=== PATIENT | female | born 1980 | race Two or more races ===

== ENCOUNTER 2019-12-01 14:48 | Emergency (ER) | payer OTHER, MEDICAID ==
[~2019-12-01] VITALS: Ht 152.4 cm; Wt 54.4 kg
[2019-12-01] MEDS ORDERED: cloNIDine HCL 0.1 MG TAB ONE (15:10)
[2019-12-01] MEDS ORDERED: cloNIDine HCL 0.1 MG TAB PO ONE (15:15)
[2019-12-01 17:06] VITALS: BP 180/131
[2019-12-01] MEDS ORDERED: cefTRIAXone SOD 1,000 MG VL IM ONE (17:30)
== END 2019-12-01 17:38 | disposition home or self-care (01) ==
LOC: ER 14:48 → EDBD 14:48 → ER 17:38
DX: S60.562A Insect bite (nonvenomous) of left hand, initial encounter (principal); S60.561A Insect bite (nonvenomous) of right hand, initial encounter; S10.96XA Insect bite of unspecified part of neck, initial encounter; S20.362A Insect bite (nonvenomous) of left front wall of thorax, initial encounter; S20.361A Insect bite (nonvenomous) of right front wall of thorax, initial encounter; I10 Essential (primary) hypertension; W57.XXXA Bitten or stung by nonvenomous insect and other nonvenomous arthropods, initial encounter; Y93.9 Activity, unspecified; Y92.89 Other specified places as the place of occurrence of the external cause; Y99.8 Other external cause status
CPT/HCPCS: 96372; 99283; J0696

== ENCOUNTER 2020-03-15 04:29 | Emergency (ER) | payer OTHER, MEDICAID ==
[~2020-03-15] VITALS: Ht 152.4 cm; Wt 59.0 kg
[2020-03-15 05:23] LABS: Basophils # (auto) 0.1 10 ^3/uL (0-0.2); Basophils % (auto) 0.9 % (0.0-2.0); Eosinophils # (auto) 0 10 ^3/uL (0-0.8); Eosinophils % (auto) 0.5 % (0.0-7.0); Hematocrit 40.1 % (36.0-46.0); Hemoglobin 13.3 g/dL (12.2-16.2); Lymphocytes # (auto) 1.9 10 ^3/uL (0.4-5.4); Lymphocytes % (auto) 26.6 % (10.0-50.0); Mean Corpuscular Hemoglobin 28.4 pg (28.0-32.0); Mean Corpuscular Hgb Conc. 33.2 g/dL (32.0-36.0); Mean Corpuscular Volume 85.3 fL (80.0-100.0); Monocytes % (auto) 14.3 % (0.0-12.0); Neutrophils # (auto) 4.1 10 ^3/uL (1.6-8.6); Neutrophils % (auto) 57.7 % (37.0-80.0); Nucleated Red Blood Cells % 0.1 %; Platelet Count (auto) 363 10^3/uL (140-450); Red Cell Distribution Width 14.6 % (11.8-14.3); White Blood Cell 7.2 10^3/uL (4.4-10.8)
[2020-03-15 05:43] LABS: Calcium 9.2 mg/dL (8.5-10.1); Magnesium 2.3 mg/dL (1.6-2.6)
[2020-03-15 05:45] LABS: Salicylate < 1.7 mg/dL (2.8-20.0)
[2020-03-15 05:46] LABS: Urine Bacteria NONE SEEN /hpf (None Seen); Urine Blood Negative /uL (Negative); Urine Mucus FEW (None Seen); Urine Specific Gravity 1.023 (1.001-1.035); Urine WBC 5 /hpf (0 - 5)
[2020-03-15 05:46] LABS: BUN/Creatinine Ratio 22.7; Bilirubin, Total 0.5 mg/dL (0.2-1.0); Total Protein 7.7 g/dL (6.4-8.2)
[2020-03-15 05:52] LABS: Potassium 2.9 mmol/L (3.5-5.1)
[2020-03-15 05:53] LABS: Acetaminophen < 2.0 ug/mL (10-30)
[2020-03-15 05:55] LABS: Amphetamine Screen, Urine POSITIVE (NEGATIVE); Barbiturate Scree,Urine NEGATIVE (NEGATIVE); Benzodiazephine Screen, Urine NEGATIVE (NEGATIVE); Cannabinoid Screen, Urine NEGATIVE (NEGATIVE); Cocaine Screen, Urine NEGATIVE (NEGATIVE); Opiate Scree,Urine NEGATIVE (NEGATIVE); Phencyclidine Screen, Urine NEGATIVE (NEGATIVE)
[2020-03-15] MEDS ORDERED: POTASSIUM EFFERVESENT TAB 25 MEQ PO ONE (07:15)
[2020-03-15] MEDS ORDERED: LORazepam 2MG/ML-1ML VIAL IV ONE ×2 (09:00→11:30)
[2020-03-15] MEDS ORDERED: OLANZapine 5 MG TAB PO ONE (09:45)
[2020-03-15] MEDS ORDERED: diphenhdrAMINE HCL 50 MG/1 ML VL IM ONE (12:15)
[2020-03-15] MEDS ORDERED: HALOPERIDOL LACTATE 5 MG/ML INJ VIAL IM ONE (12:15)
[2020-03-16 14:38] VITALS: BP 136/97
== END 2020-03-16 13:47 | disposition short-term general hospital (02) ==
LOC: ER 04:29
DX: O99.341 Other mental disorders complicating pregnancy, first trimester (principal); O99.281 Endocrine, nutritional and metabolic diseases complicating pregnancy, first trimester; O13.1 Gestational [pregnancy-induced] hypertension without significant proteinuria, first trimester; E87.6 Hypokalemia; O21.9 Vomiting of pregnancy, unspecified; F41.9 Anxiety disorder, unspecified; F31.9 Bipolar disorder, unspecified; J45.909 Unspecified asthma, uncomplicated; Z3A.08 8 weeks gestation of pregnancy; Z20.828 Contact with and (suspected) exposure to other viral communicable diseases
CPT/HCPCS: 36415; 80053; 80307; 80320; 80329; 81001; 83735; 84702; 85025; 87426; 93005; 96372; 96374; 96376; 99285; C9803; J1200; J1630; J2060; U0003

== ENCOUNTER 2020-04-02 16:45 | Emergency (ER) | payer OTHER, MEDICAID ==
[~2020-04-02] VITALS: Ht 165.1 cm; Wt 68.0 kg
[2020-04-02 19:25] LABS: Basophils # (auto) 0.1 10 ^3/uL (0-0.2); Basophils % (auto) 0.5 % (0.0-2.0); Eosinophils # (auto) 0 10 ^3/uL (0-0.8); Hematocrit 45.8 % (36.0-46.0); Lymphocytes # (auto) 1.7 10 ^3/uL (0.4-5.4); Lymphocytes % (auto) 10.1 % (10.0-50.0); Mean Corpuscular Hemoglobin 27.8 pg (28.0-32.0); Mean Corpuscular Hgb Conc. 32.8 g/dL (32.0-36.0); Mean Corpuscular Volume 84.8 fL (80.0-100.0); Monocytes # (auto) 1.6 10 ^3/uL (0-1.3); Monocytes % (auto) 9.3 % (0.0-12.0); Neutrophils # (auto) 13.5 10 ^3/uL (1.6-8.6); Neutrophils % (auto) 80.1 % (37.0-80.0); Platelet Count (auto) 391 10^3/uL (140-450); Red Cell Distribution Width 14.2 % (11.8-14.3); White Blood Cell 16.8 10^3/uL (4.4-10.8)
[2020-04-02 19:45] LABS: Albumin 4.5 g/dL (3.4-5.0); BUN/Creatinine Ratio 14.4; Calcium 9.3 mg/dL (8.5-10.1)
[2020-04-02 19:47] LABS: Bilirubin, Total 0.8 mg/dL (0.2-1.0); Total Protein 8.9 g/dL (6.4-8.2)
[2020-04-02 19:51] LABS: Potassium 2.7 mmol/L (3.5-5.1)
[2020-04-02] MEDS ORDERED: POTASSIUM EFFERVESENT TAB 25 MEQ PO ONE ×2 (20:00)
[2020-04-03 00:26] LABS: Albumin 4.2 g/dL (3.4-5.0); BUN/Creatinine Ratio 20.8; Calcium 9.2 mg/dL (8.5-10.1)
[2020-04-03 00:29] LABS: Bilirubin, Total 0.9 mg/dL (0.2-1.0); Total Protein 8.8 g/dL (6.4-8.2)
[2020-04-03 00:34] LABS: Potassium 2.9 mmol/L (3.5-5.1)
[2020-04-03] MEDS ORDERED: POTASSIUM EFFERVESENT TAB 25 MEQ PO ONE ×2 (00:45→02:00)
[2020-04-03] MEDS ORDERED: ACETAMINOPHEN 325 MG TAB PO ONE (01:15)
[2020-04-03] MEDS ORDERED: SODIUM CHLORIDE 0.9% 1,000 ML IV ONE ×2 (02:00→03:45)
[2020-04-03] MEDS ORDERED: LORazepam 2MG/ML-1ML VIAL IV ONE (02:00)
[2020-04-03] MEDS: POTASSIUM CHL 20MEQ/100ML 100 ML IV SCH ×2 (04:26→06:47)
[2020-04-03 06:00] VITALS: BP 157/106
[2020-04-03 06:39] LABS: Urine Bacteria MANY /hpf (None Seen); Urine Blood Negative /uL (Negative); Urine Mucus FEW (None Seen); Urine Specific Gravity 1.025 (1.001-1.035); Urine WBC 9 /hpf (0 - 5)
[2020-04-03 06:58] LABS: Alcohol, Urine < 3.0 mg/dL (0-10); Amphetamine Screen, Urine POSITIVE (NEGATIVE); Barbiturate Scree,Urine NEGATIVE (NEGATIVE); Benzodiazephine Screen, Urine NEGATIVE (NEGATIVE); Cannabinoid Screen, Urine NEGATIVE (NEGATIVE); Cocaine Screen, Urine NEGATIVE (NEGATIVE); Opiate Scree,Urine NEGATIVE (NEGATIVE); Phencyclidine Screen, Urine NEGATIVE (NEGATIVE)
[2020-04-03] MEDS ORDERED: GABA100C9 PO (18:44)
== END 2020-04-03 07:17 | disposition home or self-care (01) ==
LOC: EDBD 16:45 → ER 16:45
DX: R55 Syncope and collapse (principal); F15.10 Other stimulant abuse, uncomplicated; E87.6 Hypokalemia
CPT/HCPCS: 36415; 70450; 80053; 80307; 81001; 85025; 93005; 96361; 96365; 96375; 99285; J2060; J3480

== ENCOUNTER 2020-04-03 08:08 | Inpatient (IN) | payer OTHER, MEDICAID ==
[~2020-04-03] VITALS: Ht 154.9 cm; Wt 81.0 kg
[2020-04-03 09:40] LABS: Basophils # (auto) 0.1 10 ^3/uL (0-0.2); Basophils % (auto) 0.6 % (0.0-2.0); Eosinophils # (auto) 0 10 ^3/uL (0-0.8); Eosinophils % (auto) 0.1 % (0.0-7.0); Hematocrit 38.8 % (36.0-46.0); Hemoglobin 12.9 g/dL (12.2-16.2); Lymphocytes # (auto) 1.7 10 ^3/uL (0.4-5.4); Lymphocytes % (auto) 10.6 % (10.0-50.0); Mean Corpuscular Hemoglobin 28.1 pg (28.0-32.0); Mean Corpuscular Hgb Conc. 33.3 g/dL (32.0-36.0); Mean Corpuscular Volume 84.5 fL (80.0-100.0); Monocytes # (auto) 1.1 10 ^3/uL (0-1.3); Neutrophils # (auto) 12.9 10 ^3/uL (1.6-8.6); Neutrophils % (auto) 81.7 % (37.0-80.0); Platelet Count (auto) 283 10^3/uL (140-450); Red Blood Cells 4.59 10^6/uL (4.0-5.20); Red Cell Distribution Width 14.3 % (11.8-14.3); White Blood Cell 15.8 10^3/uL (4.4-10.8)
[2020-04-03 09:56] LABS: Albumin 3.6 g/dL (3.4-5.0); Anion Gap 7 (5-15); BUN/Creatinine Ratio 26.4; Blood Urea Nitrogen 19 mg/dL (7-18); Calcium 8.5 mg/dL (8.5-10.1); Carbon Dioxide 24 mmol/L (21-32); Chloride 108 mmol/L (98-107); GFR African American 116 mL/min; GFR Non-African American 96 mL/min; Glucose 168 mg/dL (74-106); Magnesium 2.1 mg/dL (1.6-2.6); Potassium 3.3 mmol/L (3.5-5.1); Sodium 139 mmol/L (136-145)
[2020-04-03 10:04] LABS: Alanine Aminotransferase 18 U/L (13-56); Alkaline Phosphatase 102 U/L (45-117); Aspartate Aminotransferase 22 U/L (15-37); Total Protein 7.5 g/dL (6.4-8.2)
[2020-04-03] MEDS ORDERED: POTASSIUM EFFERVESENT TAB 25 MEQ PO ONE (10:15)
[2020-04-03] MEDS ORDERED: cefTRIAXone 1GM/50ML D5W 50 ML IV ONE (13:30)
[2020-04-03] MEDS ORDERED: SODIUM CHLORIDE 0.9% 1,000 ML IV ONE ×2 (13:30)
[2020-04-03] MEDS ORDERED: LORazepam 2MG/ML-1ML VIAL IV ONE (13:30)
[2020-04-03 14:45] LABS: Urine Bacteria MANY /hpf (None Seen); Urine Blood Negative /uL (Negative); Urine Mucus FEW (None Seen); Urine Specific Gravity 1.024 (1.001-1.035); Urine WBC 14 /hpf (0 - 5)
[2020-04-03] MEDS ORDERED: ACETAMINOPHEN 500 MG TAB PO PRN (15:00)
[2020-04-03] MEDS ORDERED: PROMETHAZINE HCL 25 MG/ML 1ML IV PRN (15:00)
[2020-04-03] MEDS ORDERED: NITROGLYCERIN 0.4 MG SL TAB SL PRN (15:00)
[2020-04-03] MEDS ORDERED: MORPHINE SULF INJ 2 MG/ML SYRINGE 1ML IV PRN ×2 (15:00)
[2020-04-03] MEDS ORDERED: levoFLOXacin 500MG 100 ML IV ONE (15:00)
[2020-04-03] MEDS ORDERED: DEXTROSE (50%) 50ML SYRG IV PRN (15:00)
[2020-04-03 15:03] LABS: Amphetamine Screen, Urine POSITIVE (NEGATIVE); Barbiturate Scree,Urine NEGATIVE (NEGATIVE); Benzodiazephine Screen, Urine NEGATIVE (NEGATIVE); Cannabinoid Screen, Urine NEGATIVE (NEGATIVE); Cocaine Screen, Urine NEGATIVE (NEGATIVE); Phencyclidine Screen, Urine NEGATIVE (NEGATIVE)
[2020-04-03 15:11] LABS: Opiate Scree,Urine NEGATIVE (NEGATIVE)
[2020-04-03] MEDS: SOD CHL 0.9%/ KCL 40MEQ 1,000 ML IV SCH (15:11)
--- NOTE | 2020-04-03 17:47 | NUR ---
Received report from ED Report received from ER nurse Selene. Transporting up to the unit room 218 B. Patient is anxious and difficult to understand. Speech is garbled and she is anxious. She is cooperative, thoughts are broken and scattered and she is unable to explain how she ended up in the hospital. Her skin is scabbed and there are bruises on both arms and knees. Her scalp also appears to have scabbing. Vitals BP 162/101, RR 20, HR 115, temp 99.2 and O2 95% on room air. Will continue to monitor. Spoke with the mother Laura.
[2020-04-03] MEDS: ACCU-CHEK COMFORT CURVE STRIP VI SCH ×2 (18:41→23:57)
[2020-04-03] MEDS: InsuLIN REG 1unit/0.01ml Soln (100units/ml) SC SCH (18:42)
[2020-04-03] MEDS ORDERED: GABA100C9 PO (18:44)
--- NOTE | 2020-04-03 19:40 | NUR ---
OPENING SHIFT NOTE Pt is resting in bed . Awake and alert but anxious. POC discussed with pt and verbalizes understanding. Pt is with garbled/ slurred speech and not wearing her upper and lower dentures at this time. Pt noted to have an unsteady gait and encouraged to call for stand by assist to the BR and pt verbalizes understanding. Bed alarm is set for pt safety. Bed is low, wheels are locked, and call light is with in reach.
[2020-04-03 22:00] VITALS: BP 160/75
--- NOTE | 2020-04-03 22:30 | NUR ---
PT IS INCONT OF URINE AND LINEN AND GOWN CHANGED AT THIS TIME.
[2020-04-03] MEDS: metroNIDAZOLE 500MG/100ML 100 ML IV SCH (23:21)
[2020-04-03] MEDS: FAMOTIDINE 20 MG TAB PO SCH (23:21)
[2020-04-03] MEDS: traMADol HCL 50 MG TAB PO PRN (23:58)
[2020-04-04] VITALS (7 sets, daily range): BP systolic 129–152; BP diastolic 75–103
--- NOTE | 2020-04-04 02:00 | NUR ---
PT INCONT OF URINE AND PADS AND GOWN CHANGED AT THIS TIME.
[2020-04-04] MEDS: SOD CHL 0.9%/ KCL 40MEQ 1,000 ML IV SCH (06:38)
[2020-04-04] MEDS: ACCU-CHEK COMFORT CURVE STRIP VI SCH ×4 (06:39→22:00)
[2020-04-04] MEDS: InsuLIN REG 1unit/0.01ml Soln (100units/ml) SC SCH ×5 (06:39→22:00)
[2020-04-04] MEDS: metroNIDAZOLE 500MG/100ML 100 ML IV SCH ×3 (06:39→22:00)
[2020-04-04 07:00] LABS: Basophils # (auto) 0.1 10 ^3/uL (0-0.2); Basophils % (auto) 0.5 % (0.0-2.0); Eosinophils # (auto) 0.1 10 ^3/uL (0-0.8); Eosinophils % (auto) 0.4 % (0.0-7.0); Hematocrit 38.5 % (36.0-46.0); Lymphocytes # (auto) 2.2 10 ^3/uL (0.4-5.4); Lymphocytes % (auto) 15.1 % (10.0-50.0); Mean Corpuscular Hgb Conc. 33.8 g/dL (32.0-36.0); Mean Corpuscular Volume 85.6 fL (80.0-100.0); Monocytes % (auto) 7.2 % (0.0-12.0); Neutrophils # (auto) 10.9 10 ^3/uL (1.6-8.6); Neutrophils % (auto) 76.8 % (37.0-80.0); Nucleated Red Blood Cells % 0.1 %; Platelet Count (auto) 237 10^3/uL (140-450); Red Cell Distribution Width 14.3 % (11.8-14.3); White Blood Cell 14.2 10^3/uL (4.4-10.8)
[2020-04-04 07:23] LABS: Albumin 3.5 g/dL (3.4-5.0); Calcium 8.5 mg/dL (8.5-10.1)
[2020-04-04 07:28] LABS: BUN/Creatinine Ratio 14.5; Total Protein 7.5 g/dL (6.4-8.2)
--- NOTE | 2020-04-04 07:30 | NUR ---
Opening Shift Note Assumed care of patient, awake and alert. No S/S of distress/SOB. Patient complaining of a headache /. Patient is restless and communication is inconsistent with the situation. Her thoughts are broken and her speech is fast and incoherent at times. Instructed on POC and to call for assist PRN. Patient verbalized understanding. Bed is in lowest position and the call light is within reach of the patient. Sitter requested but non available at this time. Will continue to monitor for changes Q1hr and PRN.
[2020-04-04 07:47] LABS: Potassium 2.8 mmol/L (3.5-5.1)
[2020-04-04] MEDS: traMADol HCL 50 MG TAB PO PRN ×2 (07:55→21:08)
--- NOTE | 2020-04-04 08:05 | NUR ---
Critical lab value Lab called with a critical lab value potassium 3.3. 0.9% NS with 40 mEq in 1L was ordered.
--- NOTE | 2020-04-04 08:59 | NUR ---
SS recommendation SS called and recommended to request a transfer to [facility] from the attending doctor. Will update hospitalist when rounding.
--- NOTE | 2020-04-04 09:19 | NUR ---
Spoke with family Patient's mother Laura called. Password confirmed. Family was updated her status.
[2020-04-04] MEDS ORDERED: levoFLOXacin 500MG 100 ML IV SCH (10:00)
[2020-04-04] MEDS ORDERED: ENOXAPARIN SOD 40 MG/0.4 ML SYRINGE SC SCH (10:00)
[2020-04-04] MEDS: FAMOTIDINE 20 MG TAB PO SCH ×2 (10:17→21:16)
--- NOTE | 2020-04-04 11:15 | NUR ---
Dr. Mcallister at bedside Dr. Mcallister at bedside discussing the POC with the patient. Suggests to transfer the patient to [facility] for a continuation of care.
--- NOTE | 2020-04-04 11:55 | NUR ---
Transfer pt to Acute Care setting Pt picked up by [facility], Report given to Vijay BRISNEO at [id number]. Pt shows no complaint of pain. IV removed and telebox removed. Mother was notified regarding pickup time. Addendum: 04/05/20 at 0105 by BEV DENNISON RN RN Correct time and date 0679 04/04
--- NOTE | 2020-04-04 12:12 | NUR ---
1200 04/04/20 I faxed transfer order and Notice Regarding Post Stabilization to [facility]-document scanned into [employer]. I faxed today's MD progress notes, labs, vitals and medication list to [facility].
--- NOTE | 2020-04-04 13:31 | NUR ---
Assessment Patient is a 39-year-old female, who is alert and oriented. Patient cognitive abilities are intact. Patient states that she can do all ADLs and ambulate with a cane independently. Patient stated that she has history with alcohol and illicit drug abuse (methamphetamines). Patient states that she lives with her parents, shes unemployed and receives SSI benefits. Patient stated that her mother will provide transportation post discharge. Patient stated that her mother (Laura [phone]), is her support system. Patient stated that she is receptive to receive information on Advance Directive Discharge planning: SW had provided Advance Directive to patient. SW has provided patient with resources for substance abuse for inpatient and outpatient including Alcohol Anonymous programs. Patient has no other post discharge needs to identify at the moment. Addendum: 04/04/20 at 1334 by STEPAN OKEEFE Amended: Links added.
--- NOTE | 2020-04-04 15:00 | NUR ---
Spoke with [facility] watch caser Spoke with Yael a watch caser from [facility]. Updating her on the patient and her status. Requesting COVID test results, obtained and awaiting results. Yael explained that both the nearest facilities are full and there is possibility that the patient may go to [facility]. Requesting call back with COVID results.
--- NOTE | 2020-04-04 15:30 | NUR ---
Dr. Mcallister called Dr. Mcallister was called and message left concerning a potassium 2.8 redraw. Patient has been receiving electrolytes with IV fluids. Have not heard back. Will continue to monitor.
--- NOTE | 2020-04-04 16:31 | NUR ---
1630 04/04/20 I called [facility] and spoke with City Route Driver Yael-she stated they did receive the transfer order and they are working on it-they have no beds at [facility]. Per Yael if patient is not transferred to [facility] today, inpatient authorization will be extended until 04/05/20 1000. Per Yael, they are awaiting results of COVID test as well.
[2020-04-04] MEDS ORDERED: POTASSIUM CHL 20 Meq TABLET PO SCH (20:00)
[2020-04-04] MEDS ORDERED: POTASSIUM CHLORIDE 60 MEQ, LIDOCAINE 1% (LOCAL ANESTH.) 6 ML in SODIUM CHL 0.9% 500 ML IV ONE (20:00)
[2020-04-04] MEDS ORDERED: POTASSIUM CHL 20 Meq TABLET PO ONE (20:45)
== END 2020-04-04 23:55 | disposition short-term general hospital (02) | DRG 871 ==
LOC: ER 08:08 → TELE-CENTR 08:09
PROVIDERS: ADMIT Internal Medicine; ATTEND Family Medicine
DX: A41.9 Sepsis, unspecified organism (principal); G93.41 Metabolic encephalopathy; L03.116 Cellulitis of left lower limb; N39.0 Urinary tract infection, site not specified; R55 Syncope and collapse; E87.6 Hypokalemia; F15.90 Other stimulant use, unspecified, uncomplicated; I10 Essential (primary) hypertension; J45.909 Unspecified asthma, uncomplicated; E86.0 Dehydration; E11.65 Type 2 diabetes mellitus with hyperglycemia; F41.9 Anxiety disorder, unspecified; Z90.710 Acquired absence of both cervix and uterus; Z98.84 Bariatric surgery status; Z20.828 Contact with and (suspected) exposure to other viral communicable diseases; Z88.8 Allergy status to other drugs, medicaments and biological substances
CPT/HCPCS: 36415; 74176; 76856; 80053; 80307; 80320; 81001; 81025; 82962; 83036; 83605; 83735; 84484; 85025; 85652; 87040; 87086; 87426; 93005; 96361; 96365; 96367; G0378; J0696; J1815; J1956; J2001; J3490